=== PATIENT | female | born 1970 | race Caucasian/White ===

== ENCOUNTER 2017-10-30 02:17 | Emergency (ER) | payer MEDICAID ==
[2017-10-30 02:29] VITALS: BP 112/67
== END 2017-10-30 05:35 | disposition left against medical advice (07) ==
LOC: ER 02:17
DX: Z53.21 Procedure and treatment not carried out due to patient leaving prior to being seen by health care provider (principal)

== ENCOUNTER 2018-08-08 04:18 | Emergency (ER) | payer MEDICAID ==
[2018-08-08] MEDS ORDERED: CEPHALEXIN 500 MG CAPSULE PO ONE (11:54)
--- NOTE | 2018-08-08 11:57 | RADIOLOGY REPORT (SQ) ---
EXAM DESCRIPTION: VENOUS BILATERAL LOWER COMPLETED DATE/TIME: 08/08/2018 11:45 am REASON FOR STUDY: edema, r/o dvt COMPARISON: None. TECHNIQUE: Dynamic and static patton scale and color images acquired of both lower extremity venous sy stems. Selected spectral images acquired with additional compression and augmentation maneuvers. Imag es stored on PACS. LIMITATIONS: None. FINDINGS: RIGHT LEG COMMON FEMORAL AND FEMORAL: Normal phasicity, compression and augmentation. No visualized echogenic m aterial on patton scale. No defects on color images. POPLITEAL: Normal compression and augmentation. No visualized echogenic material on patton scale. No de fects on color images. CALF VESSELS: Normal compression and augmentation. No visualized echogenic material on patton scale. No defects on color image. GSV AND SSV: Normal compression. No visualized echogenic material on patton scale. No defects on color images. ANY DEEP VENOUS INSUFFICIENCY: No. ANY EVIDENCE OF POPLITEAL CYST: No. OTHER: No other significant finding. LEFT LEG COMMON FEMORAL AND FEMORAL: Normal phasicity, compression and augmentation. No visualized echogenic m aterial on patton scale. No defects on color images. POPLITEAL: Normal compression and augmentation. No visualized echogenic material on patton scale. No de fects on color images. CALF VESSELS: Normal compression and augmentation. No visualized echogenic material on patton scale. No defects on color images. GSV AND SSV: Normal compression. No visualized echogenic material on patton scale. No defects on color images. ANY DEEP VENOUS INSUFFICIENCY: No. ANY EVIDENCE POPLITEAL CYST: No. OTHER: No other significant finding. IMPRESSION: NO EVIDENCE DVT OR SVT IN EITHER LEG. TECHNICAL DOCUMENTATION: JOB ID: [id number] [employer]- All Rights Reserved Reading location - IP/workstation name: [email or web address]
--- NOTE | 2018-08-08 13:05 | ER Document Report ---
ED General - General Chief Complaint: Leg Swelling Stated Complaint: LEG PAIN Time Seen by Provider: 08/08/18 06:13 TRAVEL OUTSIDE OF THE [place] IN LAST 30 DAYS: No - HPI Notes: Patient is a 48-year-old female who presents to the emergency department for evaluation of left lower leg swelling and pain. She states is been going on for last month. She states this getting progressively worse. She denies any associated chest pain or shortness of breath. No nausea or vomiting. She states she has not had any prolonged immobility, no history of blood clots, no family history of blood clots. She has not had any recent surgeries. She does admit to picking at chronic wounds throughout her entire skin. - Related Data Allergies/Adverse Reactions: amoxicillin [Amoxicillin] Allergy (Verified 09/02/15 21:24) codeine Allergy (Verified 09/02/15 21:24) erythromycin base [Erythromycin Base] Allergy (Verified 09/02/15 21:24) iodine Allergy (Verified 09/02/15 21:24) Sulfa (Sulfonamide Antibiotics) Allergy (Verified 09/02/15 21:24) tetracycline [Tetracycline] Allergy (Verified 09/02/15 21:24) Past Medical History - General Information source: Patient - Social History Smoking Status: Current Some Day Smoker Chew tobacco use (# tins/day): No Frequency of alcohol use: Occasional Drug Abuse: Marijuana Family History: None Patient has suicidal ideation: No Patient has homicidal ideation: No Pulmonary Medical History: Reports: Hx Bronchitis Renal/ Medical History: Denies: Hx Peritoneal Dialysis Musculoskeletal Medical History: Reports Hx Arthritis Psychiatric Medical History: Reports: Hx Depression Past Surgical History: Reports: Hx Appendectomy, Hx Section, Hx Orthopedic Surgery - neck surgery - Immunizations Immunizations up to date: Yes Hx Diphtheria, Pertussis, Tetanus Vaccination: Yes Review of Systems - Review of Systems Constitutional: No symptoms reported EENT: No symptoms reported Respiratory: No symptoms reported Gastrointestinal: No symptoms reported Genitourinary: No symptoms reported Female Genitourinary: No symptoms reported Musculoskeletal: See HPI Skin: See HPI Neurological/Psychological: No symptoms reported Physical Exam - Vital signs Vitals: Temp Pulse Resp BP Pulse Ox 97.5 F 81 20 124/62 99 08/08/18 04:19 08/08/18 04:19 08/08/18 04:19 08/08/18 04:19 08/08/18 04:19 - Notes Notes: Vital signs reviewed, please refer to chart. Head is normocephalic, atraumatic. Pupils equal round, reactive to light. Neck is supple without meningismus. Heart is regular rate and rhythm. Lungs are clear to auscultation bilaterally. Abdomen is soft, nontender, normoactive bowel sounds throughout. Extremities without cyanosis, clubbing. Patient has 3+ pitting edema bilateral lower extremities. No posterior calf tenderness. Peripheral pulses are equal. Skin is warm and dry. He does have some mild associated calor and erythema to the left lower extremity. Not well demarcated, consistent with a possible cellulitis. Patient is awake, alert, neurological exam is nonfocal. Course - Re-evaluation Re-evalutation: 08/08/18 13:09 Patient presents emergency department for evaluation of lower extremity edema. She really did not notice that her right leg was just as swollen as her left. Bilateral Dopplers were found to be negative. We will go ahead and treat her for a cyst infected cellulitis given the multiple wounds that she has. She also has some diffuse erythema. She has no fevers or chills. No nausea or vomiting. She tolerated her first dose of Keflex here. I will send her home with prescription for same. She is to follow-up with primary care this week, return to the ED with worsening or new concerning symptoms of any sort. - Vital Signs Vital signs: Temp Pulse Resp BP Pulse Ox 98.0 F 81 16 118/54 L 96 08/08/18 08:17 08/08/18 08:17 08/08/18 08:17 08/08/18 08:17 08/08/18 08:17 Discharge - Discharge Clinical Impression: Lower extremity edema, Cellulitis of left leg without foot Condition: Stable Disposition: HOME, SELF-CARE Instructions: Dependent Edema ([facility]), Cellulitis ([facility]) Additional Instructions: Elevate legs, increase water intake. Take medication as prescribed. Return to the emergency department with worsening or new concerning symptoms.
[2018-08-08 13:09] VITALS: BP 130/78
== END 2018-08-08 13:33 | disposition home or self-care (01) ==
LOC: ER 04:18
DX: L03.116 Cellulitis of left lower limb (principal); R60.0 Localized edema; M79.662 Pain in left lower leg; F17.200 Nicotine dependence, unspecified, uncomplicated; F12.10 Cannabis abuse, uncomplicated; Z88.0 Allergy status to penicillin; Z88.5 Allergy status to narcotic agent; Z88.1 Allergy status to other antibiotic agents; Z88.2 Allergy status to sulfonamides
CPT/HCPCS: 93970; 99283

== ENCOUNTER 2018-08-16 22:26 | Emergency (ER) | payer MEDICAID ==
[2018-08-16] MEDS ORDERED: PREDNISONE 20 MG TABLET PO ONE (23:35)
[2018-08-16] MEDS ORDERED: FLUCONAZOLE 100 MG TABLET PO ONE (23:35)
--- NOTE | 2018-08-16 23:38 | ER Document Report ---
HPI - HPI Time Seen by Provider: 08/16/18 23:14 Pain Level: Denies Notes: Patient is a 48-year-old female presenting to the emergency department with complaints of rash that has been ongoing for 2 years. Patient reports that she is been placed on multiple creams as well as recently placed on Keflex for her rash. Patient states that the rash causes her much distress. Patient states that she has been seen by 2 different dermatologists. Patient reports that the computer programmer have now refused to see her stating that there is nothing wrong with her. Patient does have dried up scabs as well as new abrasions scattered across upper and lower extremities as well as in her scalp. Patient is requesting steroids as well as yeast medication as she states that the last doctor she saw thought that she should use Monistat cream to the areas. - REPRODUCTIVE Reproductive: DENIES: : Past Medical History - General Information source: Patient - Social History Smoking Status: Current Every Day Smoker Chew tobacco use (# tins/day): No Frequency of alcohol use: None Drug Abuse: None Family History: None Patient has suicidal ideation: No Patient has homicidal ideation: No Pulmonary Medical History: Reports: Hx Bronchitis Renal/ Medical History: Denies: Hx Peritoneal Dialysis Musculoskeletal Medical History: Reports Hx Arthritis Psychiatric Medical History: Reports: Hx Depression Past Surgical History: Reports: Hx Appendectomy, Hx Section, Hx Orthopedic Surgery - neck surgery - Immunizations Immunizations up to date: Yes Hx Diphtheria, Pertussis, Tetanus Vaccination: Yes Vertical Provider Document - CONSTITUTIONAL Notes: PHYSICAL EXAMINATION: GENERAL: Well-appearing, well-nourished and in no acute distress. HEAD: Atraumatic, normocephalic. EYES: Pupils equal round extraocular movements intact, conjunctiva are normal. ENT: Nares patent NECK: Normal range of motion LUNGS: No respiratory distress Musculoskeletal: Normal range of motion NEUROLOGICAL: Normal speech, normal gait. PSYCH: Normal mood, normal affect. SKIN: Warm, Dry, normal turgor, scattered rash noted with circular lesions of various stages of healing consistent with patient constantly scratching at the area. - INFECTION CONTROL TRAVEL OUTSIDE OF THE [place] IN LAST 30 DAYS: No Course - Re-evaluation Re-evalutation: Patient will be started on prednisone and Diflucan for her symptoms. I encouraged her to please follow-up with her primary care provider for consideration of referral to another computer programmer. - Vital Signs Vital signs: Temp Pulse Resp BP Pulse Ox 98.3 F 83 16 115/69 98 08/16/18 22:32 08/16/18 22:32 08/16/18 22:32 08/16/18 22:32 08/16/18 22:32 Discharge - Discharge Clinical Impression: fungal rash, puritis Condition: Stable Disposition: HOME, SELF-CARE Additional Instructions: Please take medications as prescribed. Please also take Benadryl 50 mg every 6 hours for the next 2 days. Follow-up with the [facility] as discussed. Try not to itch the areas. Continue taking the Keflex that was previously prescribed to you if you days ago. Prescriptions: Fluconazole [Diflucan] 150 mg PO ONCE PRN #1 tablet PRN Reason: RX: Prednisone [Deltasone] 60 mg PO DAILY #12 tablet
[2018-08-17 00:06] VITALS: BP 136/74
== END 2018-08-17 00:13 | disposition home or self-care (01) ==
LOC: ER 22:26
DX: B36.9 Superficial mycosis, unspecified (principal); F17.200 Nicotine dependence, unspecified, uncomplicated
CPT/HCPCS: 99282; J7512; J3490

== ENCOUNTER 2018-09-11 01:34 | Emergency (ER) | payer SELFPAY ==
[2018-09-11 01:59] VITALS: BP 107/81
--- NOTE | 2018-09-11 02:13 | ER Document Report ---
HPI - HPI Time Seen by Provider: 09/11/18 02:02 Context: Patient is a 48-year-old female who presents emergency department with a chief complaint of a rash that is all over her body. She has had it for the past 2 years. She continues to scratch at them. She was placed on Keflex about a hunter h and a half ago and she was also seen here in the emergency department and was placed on Diflucan to cover any fungal infection. Denies any fever. She just states it is itching all the time and she takes Benadryl [id number]. - ROS Notes: REVIEW OF SYSTEMS: CONSTITUTIONAL : Denies recent illness. Denies recent unintentional weight loss. Denies fever, chills, or sweats. EENT: Denies eye, ear, throat, or mouth pain, discharge, or symptoms. Denies nasal or sinus congestion. CARDIOVASCULAR: Denies chest pain. RESPIRATORY: Denies shortness of breath, cough, congestion, difficulty breathing, or wheezing. GASTROINTESTINAL: Denies nausea, vomiting, and diarrhea. Denies abdominal pain. Denies constipation. GENITOURINARY: Denies difficulty urinating, burning, blood in urine, urgency or frequency. MUSCULOSKELETAL: Denies neck and back pain. Denies joint pain or swelling. SKIN: See HPI HEMATOLOGIC : Denies easy bruising or bleeding. LYMPHATIC: Denies swollen, painful, enlarged glands. NEUROLOGICAL: Denies no numbness or tingling denies weakness. Denies headache. Denies altered mental status. Denies alteration in speech. PSYCHIATRIC: Denies stress, anxiety, alteration in sleep patterns, or depression. All other systems reviewed and negative. - REPRODUCTIVE Reproductive: DENIES: : Past Medical History - General Information source: Patient - Social History Smoking Status: Current Every Day Smoker Family History: None Pulmonary Medical History: Reports: Hx Bronchitis Renal/ Medical History: Denies: Hx Peritoneal Dialysis Musculoskeletal Medical History: Reports Hx Arthritis Psychiatric Medical History: Reports: Hx Depression Past Surgical History: Reports: Hx Appendectomy, Hx Section, Hx Orthopedic Surgery - neck surgery - Immunizations Immunizations up to date: Yes Hx Diphtheria, Pertussis, Tetanus Vaccination: Yes Vertical Provider Document - CONSTITUTIONAL Notes: PHYSICAL EXAMINATION: GENERAL: Appears well, healthy, well-nourished, no acute distress. HEAD: Normocephalic, atraumatic. EYES: PERRL, conjunctiva normal, all extraocular movements intact, sclera nonicteric ENT: Moist mucous membranes. NECK: Supple, no noticeable swelling, redness, rash. Normal range of motion. LUNGS: Equal breath sounds bilaterally and clear to auscultation. No wheezes rales or rhonchi. CARDIOVASCULAR: S1-S2, regular rate, regular rhythm. Radial pulses 2+, normal. ABDOMEN: Normoactive bowel sounds. Soft, nontender, no guarding, no rebound tenderness, and no masses palpated. EXTREMITIES: Normal strength and range of motion, no pitting or edema. No cyanosis. NEUROLOGICAL: Moves all extremities upon command. Strength 5/5 in all extremities. PSYCH: Normal mood, normal affect. SKIN: Warm, dry. Lesions noted all over body, consistent with the patient's scratching. Lesions are at various stages of healing. - INFECTION CONTROL TRAVEL OUTSIDE OF THE [place] IN LAST 30 DAYS: No Course - Re-evaluation Re-evalutation: 09/11/18 02:13 I am suspecting the patient is having continued bacterial skin infection because she continues to pick at her skin. She will be placed on Keflex again follow-up with her primary care provider. Ice suggested she also see dermatology, but she states she will not see them anymore because the visits are too expensive. I then suggested she follow-up with her primary care provider. She is in agreement with this plan. Follow-up precautions were given. Verbal discharge instructions were given to the patient. They verbalized understanding. They are stable for discharge. - Vital Signs Vital signs: Temp Pulse Resp BP Pulse Ox 98.2 F 91 20 107/81 97 09/11/18 01:57 09/11/18 01:57 09/11/18 01:57 09/11/18 01:57 09/11/18 01:57 Discharge - Discharge Clinical Impression: Rash Condition: Stable Disposition: HOME, SELF-CARE Additional Instructions: You were seen today in the emergency department for rash. You are being started on the antibiotic. Please make sure you finish all your antibiotics. Please stop picking at your skin, because this can make it worse. Please follow-up with your primary care provider or one of the clinics below in regards to this visit. Prescriptions: Cephalexin Monohydrate [Keflex 500 mg Capsule] 500 mg PO Q6H 7 Days #28 capsule
== END 2018-09-11 02:25 | disposition home or self-care (01) ==
LOC: ER 01:34
DX: R21 Rash and other nonspecific skin eruption (principal); F17.200 Nicotine dependence, unspecified, uncomplicated
CPT/HCPCS: 99282

== ENCOUNTER 2018-10-15 03:58 | Emergency (ER) | payer SELFPAY ==
[2018-10-15 04:08] VITALS: BP 122/79
[2018-10-15] MEDS ORDERED: LIDOCAINE 2% INJ (20 MG/ML) 20 ML MDV INJ ONE (04:17)
[2018-10-15] MEDS ORDERED: BUPIVACAINE HCL 0.5 % INJ/PF 30 ML SDV INJ ONE (04:18)
--- NOTE | 2018-10-15 04:25 | ER Document Report ---
ED General - General Chief Complaint: Hand Pain Stated Complaint: FINGER PAIN Time Seen by Provider: 10/15/18 04:13 Notes: Patient is a 48-year-old female presents with complaint of swelling and pain to the pad of the right middle finger. Patient says she has been actually trying to cut herself and try to get the pus out. She has several superficial abrasions on the finger for which she is been coming with her pocketknife. She denies any fevers. She does have a skin condition where she has dry skin and she picks at her skin frequently. She is been seen at the ER several times for skin picking in the past. TRAVEL OUTSIDE OF THE [place] IN LAST 30 DAYS: No - Related Data Allergies/Adverse Reactions: amoxicillin [Amoxicillin] Allergy (Verified 09/02/15 21:24) codeine Allergy (Verified 09/02/15 21:24) erythromycin base [Erythromycin Base] Allergy (Verified 09/02/15 21:24) iodine Allergy (Verified 09/02/15 21:24) Sulfa (Sulfonamide Antibiotics) Allergy (Verified 09/02/15 21:24) tetracycline [Tetracycline] Allergy (Verified 09/02/15 21:24) Past Medical History - Social History Smoking Status: Unknown if Ever Smoked Frequency of alcohol use: None Drug Abuse: None Family History: None Pulmonary Medical History: Reports: Hx Bronchitis Renal/ Medical History: Denies: Hx Peritoneal Dialysis Musculoskeletal Medical History: Reports Hx Arthritis Psychiatric Medical History: Reports: Hx Depression Past Surgical History: Reports: Hx Appendectomy, Hx Section, Hx Orthopedic Surgery - neck surgery - Immunizations Immunizations up to date: Yes Hx Diphtheria, Pertussis, Tetanus Vaccination: Yes Review of Systems - Review of Systems Notes: My Normal Review Basic REVIEW OF SYSTEMS: CONSTITUTIONAL : Denies fever, chills, or sweats. Denies recent illness. MUSCULOSKELETAL: Pain and swelling to the pad of the right third digit. SKIN: Denies rash or skin lesions. NEUROLOGICAL: Denies sensory or motor loss. ALL OTHER SYSTEMS REVIEWED AND NEGATIVE. Physical Exam - Vital signs Vitals: Temp Pulse BP Pulse Ox 97.6 F 87 122/79 100 10/15/18 04:07 10/15/18 04:07 10/15/18 04:07 10/15/18 04:07 - Notes Notes: General Appearance: Well nourished, alert, cooperative, no acute distress, moderate obvious discomfort. Vitals: reviewed, See vital signs table. Eyes: PERRL, EOMI, Conjuctiva clear Extremities: strength 5/5 in all extremities, good pulses in all extremities, patient has an obvious felon with swelling and tenderness to the pad of the right middle finger. Skin: warm, dry, appropriate color, no rash Neuro: speech clear, oriented x 3, normal affect, responds appropriately to questions. Course - Vital Signs Vital signs: Temp Pulse Resp BP Pulse Ox 97.6 F 87 122/79 100 10/15/18 04:07 10/15/18 04:07 10/15/18 04:07 10/15/18 04:07 Procedures - Incision and Drainage felon right 3rd digit mL's of anesthetic: 2 Blade size: 11 I&D procedure: Betadine prep applied Incision Method: Incision made by scalpel Amount/type of drainage: small amount of purulent drainage Notes: 10/15/18 05:28 Finger was anesthetized with a mixture of half lidocaine 2% and half bupivicaine 0.5%. Patient was given a total of 2 mL's of this mixture to the base of the right third digit. Discharge - Discharge Clinical Impression: Felon of finger Condition: Good Disposition: HOME, SELF-CARE Additional Instructions: Felon (Fingertip Abscess) You have a pus-forming infection of your fingertip. This is called a felon. A felon can cause permanent damage to the finger pad if untreated. If the infection has formed a pocket of pus, it will require incision and drainage (lancing). Sometimes a packing or wick is placed into the abscess cavity for a few days. Antibiotics are usually prescribed. Elevation and application of heat can be helpful. The wound will heal with surprisingly little scar. This will take a two or three weeks. If you develop fever, chilling, worsening pain, or increasing swelling in the area, call the doctor or return immediately. We have prescribed an antibiotic called clindamycin. Please stop taking this antibiotic if you develop diarrhea. Follow-up with your doctor or the ER on Thursday for reevaluation to make sure your finger is healing appropriately. Prescriptions: Clindamycin HCl [Cleocin 150 mg Capsule] 300 mg PO Q6 #56 capsule Forms: Return to Work
[2018-10-15] MEDS ORDERED: ONDANSETRON 4 MG TAB.RAPDIS ONE (05:11)
[2018-10-15] MEDS ORDERED: ONDANSETRON 4 MG TAB.RAPDIS PO ONE (05:15)
[2018-10-15] MEDS ORDERED: CLINDAMYCIN HCL 150 MG CAPSULE PO ONE (05:36)
== END 2018-10-15 05:50 | disposition home or self-care (01) ==
LOC: ER 03:58
PROC: 0H9QXZZ Drainage of Finger Nail, External Approach (ICD-10-PCS; principal; 2018-10-15)
DX: L03.011 Cellulitis of right finger (principal); S60.412A Abrasion of right middle finger, initial encounter; M79.644 Pain in right finger(s); M79.89 Other specified soft tissue disorders; X58.XXXA Exposure to other specified factors, initial encounter
CPT/HCPCS: 99283; 10060; J3490 ×2; S0119

== ENCOUNTER 2018-10-16 20:48 | Emergency (ER) | payer SELFPAY ==
[2018-10-16] MEDS ORDERED: OXYCODONE-ACETAMINOPHEN 5-325 MG TABLET PO ONE (21:49)
--- NOTE | 2018-10-16 22:24 | ER Document Report ---
ED Wound - General Chief Complaint: Wound Infection Stated Complaint: HAND INFECTION Time Seen by Provider: 10/16/18 21:18 Mode of Arrival: Ambulatory Information source: Patient Notes: Patient is a 48-year-old female presented to the emergency department with chief complaint of concern for right fourth digit infection. Patient reports pain and swelling started 5 days ago. She reports she was seen in this emergency department 2 days ago at which time an incision and drainage was performed. Patient reports she was placed on cephalexin but she did not take it as she thinks she is allergic to it. Patient does report she had leftover cephalexin that she has taken 2 doses out of. Patient denies any fever or chills, states that the pain and swelling is better than it was 2 days ago but has not improved. She reports when the incision and drainage was performed they did not get much out. TRAVEL OUTSIDE OF THE [place] IN LAST 30 DAYS: No - Related Data Allergies/Adverse Reactions: amoxicillin [Amoxicillin] Allergy (Verified 09/02/15 21:24) codeine Allergy (Verified 09/02/15 21:24) erythromycin base [Erythromycin Base] Allergy (Verified 09/02/15 21:24) iodine Allergy (Verified 09/02/15 21:24) Sulfa (Sulfonamide Antibiotics) Allergy (Verified 09/02/15 21:24) tetracycline [Tetracycline] Allergy (Verified 09/02/15 21:24) Past Medical History - General Information source: Patient - Social History Smoking Status: Current Every Day Smoker Chew tobacco use (# tins/day): No Frequency of alcohol use: None Drug Abuse: None Family History: None Patient has suicidal ideation: No Patient has homicidal ideation: No Pulmonary Medical History: Reports: Hx Bronchitis Renal/ Medical History: Denies: Hx Peritoneal Dialysis Musculoskeletal Medical History: Reports Hx Arthritis Psychiatric Medical History: Reports: Hx Depression Past Surgical History: Reports: Hx Appendectomy, Hx Section, Hx Orthopedic Surgery - neck surgery - Immunizations Immunizations up to date: Yes Hx Diphtheria, Pertussis, Tetanus Vaccination: Yes Review of Systems - Review of Systems Constitutional: No symptoms reported EENT: No symptoms reported Cardiovascular: No symptoms reported Respiratory: No symptoms reported Gastrointestinal: No symptoms reported Genitourinary: No symptoms reported Female Genitourinary: No symptoms reported Musculoskeletal: See HPI Skin: See HPI Hematologic/Lymphatic: No symptoms reported Neurological/Psychological: No symptoms reported Physical Exam - Vital signs Vitals: Temp Pulse Resp BP Pulse Ox 97.7 F 106 H 19 130/63 H 98 10/16/18 20:52 10/16/18 20:52 10/16/18 20:52 10/16/18 20:52 10/16/18 20:52 - Notes Notes: PHYSICAL EXAMINATION: GENERAL: Well-appearing, well-nourished and in no acute distress. HEAD: Atraumatic, normocephalic. EYES: Pupils equal round extraocular movements intact, conjunctiva are normal. ENT: Nares patent NECK: Normal range of motion LUNGS: No respiratory distress Musculoskeletal: Normal range of motion, full flexion and extension of right fourth digit, see below. NEUROLOGICAL: Normal speech, normal gait. PSYCH: Normal mood, normal affect. SKIN: Induration noted to tip of right fourth digit on the plantar surface, cap refill less than 3 seconds, normal motor and sensation although limited somewhat due to pain. Course - Re-evaluation Re-evalutation: X-ray was performed and shows no evidence of osteomyelitis. I did recommend to the patient that we do a digital block to perform another incision and drainage, patient adamantly declines this. I did ask patient if she had been soaking the finger, patient reports she soaked the finger one time, states that she did not know that would help. Patient requesting prescription for antibiotics that she is not allergic to and she would like to give it 24 hours to try warm salt soaks. At this time there is induration but no area of fluctuance. - Vital Signs Vital signs: Temp Pulse Resp BP Pulse Ox 97.8 F 87 18 111/64 99 10/17/18 00:10 10/17/18 00:10 10/17/18 00:10 10/17/18 00:10 10/17/18 00:10 Discharge - Discharge Clinical Impression: Felon of finger Cellulitis Qualifiers: Site of cellulitis: other site Qualified Code(s): L03.818 - Cellulitis of other sites Condition: Stable Disposition: HOME, SELF-CARE Additional Instructions: Felon (Fingertip Abscess) You have a pus-forming infection of your fingertip. This is called a felon. A felon can cause permanent damage to the finger pad if untreated. If the infection has formed a pocket of pus, it will require incision and drainage (lancing). Sometimes a packing or wick is placed into the abscess cavity for a few days. Antibiotics are usually prescribed. Elevation and application of heat can be helpful. The wound will heal with surprisingly little scar. This will take a two or three weeks. If you develop fever, chilling, worsening pain, or increasing s welling in the area, call the doctor or return immediately. You have declined another incision and drainage today. Please take antibiotics exactly as prescribed. You have been prescribed this antibiotic as you stated that you are allergic to clindamycin that was previously given to you. Please do not pick at the area, use warm salt soaks 4 times daily with clean water. Watch the area very closely and if not improving significantly please return within 24 hours. Return sooner if worsening or if you develop a fever. Prescriptions: Cephalexin [Cephalexin 500 MG Tablet] 1 tab PO QID #40 tablet
--- NOTE | 2018-10-16 22:33 | RADIOLOGY REPORT (SQ) ---
EXAM DESCRIPTION: XR FINGERS COMPLETED DATE/TME: 10/16/2018 21:49 CLINICAL HISTORY: 48 years, Female, 4th digit pain/swelling COMPARISON: None. NUMBER OF VIEWS: 3 TECHNIQUE: 3 views of the right fourth digit LIMITATIONS: None. FINDINGS: Old healed fifth metacarpal fracture. Soft tissue swelling along the distal aspect of the fourth digit. No soft tissue gas. No acute osseous abnormality. IMPRESSION: Soft tissue swelling of the distal fourth digit. No acute osseous abnormality copyright 2010 [employer]- All Rights Reserved
[2018-10-16] MEDS ORDERED: LIDOCAINE 1% INJ-PF (10 MG/ML) 30 ML SDV NEB ONE (23:47)
[2018-10-16] MEDS ORDERED: CEFTRIAXONE INJ 1000 MG VIAL IM ONE (23:47)
[2018-10-16] MEDS ORDERED: LIDOCAINE 1% INJ-PF (10 MG/ML) 30 ML SDV IM ONE (23:50)
[2018-10-17] MEDS ORDERED: HYDROCODONE/ACETAMINOPHEN 5-325 MG (6 TAB/ER DISP) PO PRN (00:10)
[2018-10-17 00:13] VITALS: BP 111/64
== END 2018-10-17 00:25 | disposition home or self-care (01) ==
LOC: ER 20:48
DX: L03.011 Cellulitis of right finger (principal); T36.1X6A Underdosing of cephalosporins and other beta-lactam antibiotics, initial encounter; Z91.128 Patient's intentional underdosing of medication regimen for other reason; Z91.14 Patient's other noncompliance with medication regimen; Z98.890 Other specified postprocedural states; Z88.0 Allergy status to penicillin; Z88.5 Allergy status to narcotic agent; Z88.1 Allergy status to other antibiotic agents; Z88.2 Allergy status to sulfonamides
CPT/HCPCS: 99283; 96372; 73140; J3490; J0696

== ENCOUNTER 2018-10-18 22:04 | Emergency (ER) | payer SELFPAY ==
[2018-10-18 22:20] VITALS: BP 127/69
--- NOTE | 2018-10-18 23:07 | ER Document Report ---
ED Medical Screen (RME) - General Chief Complaint: Wound Infection Stated Complaint: FINGER PAIN Time Seen by Provider: 10/18/18 22:59 Mode of Arrival: Ambulatory Information source: Patient Notes: 48-year-old female presented to ED for complaint of skin infection all over. She states she is got her skin infection back all over she is itching all over in this hospital is going to make her sick. She was seen in the ER October 15 and . Patient is alert oriented respirations regular and unlabored speaking in full sentences walking with a even steady gait. I have greeted and performed a rapid initial assessment of this patient. A comprehensive ED assessment and evaluation of the patient, analysis of test results and completion of medical decision making process will be conducted by an additional ED providers. Dictation of this chart was performed using voice recognition software; therefore, there may be some unintended grammatical errors. TRAVEL OUTSIDE OF THE [place] IN LAST 30 DAYS: No - Related Data Allergies/Adverse Reactions: amoxicillin [Amoxicillin] Allergy (Verified 09/02/15 21:24) codeine Allergy (Verified 09/02/15 21:24) erythromycin base [Erythromycin Base] Allergy (Verified 09/02/15 21:24) iodine Allergy (Verified 09/02/15 21:24) Sulfa (Sulfonamide Antibiotics) Allergy (Verified 09/02/15 21:24) tetracycline [Tetracycline] Allergy (Verified 09/02/15 21:24) Past Medical History Pulmonary Medical History: Reports: Hx Bronchitis Renal/ Medical History: Denies: Hx Peritoneal Dialysis Musculoskeltal Medical History: Reports Hx Arthritis Psychiatric Medical History: Reports: Hx Depression Past Surgical History: Reports: Hx Appendectomy, Hx Section, Hx Orthopedic Surgery - neck surgery - Immunizations Immunizations up to date: Yes Hx Diphtheria, Pertussis, Tetanus Vaccination: Yes Physical Exam - Vital signs Vitals: Temp Pulse Resp BP Pulse Ox 98.1 F 91 16 127/69 H 96 10/18/18 22:18 10/18/18 22:18 10/18/18 22:18 10/18/18 22:18 10/18/18 22:18 Course - Vital Signs Vital signs: Temp Pulse Resp BP Pulse Ox 98.1 F 91 16 127/69 H 96 10/18/18 22:18 10/18/18 22:18 10/18/18 22:18 10/18/18 22:18 10/18/18 22:18
== END 2018-10-19 02:55 | disposition left against medical advice (07) ==
LOC: ER 22:04
DX: L08.9 Local infection of the skin and subcutaneous tissue, unspecified (principal); Z88.0 Allergy status to penicillin; Z88.6 Allergy status to analgesic agent; Z88.3 Allergy status to other anti-infective agents; Z88.2 Allergy status to sulfonamides
CPT/HCPCS: 99281

== ENCOUNTER 2018-11-19 15:13 | Emergency (ER) | payer SELFPAY ==
[2018-11-19 15:22] VITALS: BP 124/63
--- NOTE | 2018-11-19 16:21 | ER Document Report ---
HPI - HPI Patient complains to provider of: skin rash Time Seen by Provider: 11/19/18 16:04 Onset/Duration: Persistent Pain Level: Denies Context: Patient presents complaining of pruritic skin rash for the past 2 days. Patient states she had a rash like this off and on for the past 2 years. Patient also reports a new roommate and is concerned that she may have been exposed to mites. Patient denies any new foods or medications. No new detergents. Associated Symptoms: denies: Fever, Headache Exacerbated by: Denies Relieved by: Denies Similar symptoms previously: Yes Recently seen / treated by doctor: No - ROS ROS below otherwise negative: Yes Systems Reviewed and Negative: Yes All other systems reviewed and negative - CONSTITUTIONAL Constitutional: DENIES: Fever - NEURO Neurology: DENIES: Headache - GASTROINTESTINAL Gastrointestinal: DENIES: Nausea - REPRODUCTIVE Reproductive: DENIES: : - DERM Skin Color: Normal Skin Problems: Rash Past Medical History - General Information source: Patient - Social History Smoking Status: Current Every Day Smoker Chew tobacco use (# tins/day): No Frequency of alcohol use: None Drug Abuse: Marijuana Occupation: None Lives with: Friend Family History: None Patient has suicidal ideation: No Patient has homicidal ideation: No - Medical History Medical History: Other - sjorgrens Pulmonary Medical History: Reports: Hx Bronchitis Renal/ Medical History: Denies: Hx Peritoneal Dialysis Musculoskeletal Medical History: Reports Hx Arthritis Skin Medical History: Reports Other Psychiatric Medical History: Reports: Hx Depression Past Surgical History: Reports: Hx Appendectomy, Hx Section - 3, Hx Orthopedic Surgery - neck surgery - Immunizations Immunizations up to date: Yes Hx Diphtheria, Pertussis, Tetanus Vaccination: Yes Vertical Provider Document - CONSTITUTIONAL Agree With Documented VS: Yes Exam Limitations: No Limitations General Appearance: WD/WN, No Apparent Distress - INFECTION CONTROL TRAVEL OUTSIDE OF THE [place] IN LAST 30 DAYS: No - HEENT HEENT: Atraumatic, Normocephalic - NECK Neck: Normal Inspection, Supple - RESPIRATORY Respiratory: Breath Sounds Normal, No Respiratory Distress - CARDIOVASCULAR Cardiovascular: Regular Rate, Regular Rhythm - BACK Back: Normal Inspection - MUSCULOSKELETAL/EXTREMETIES Musculoskeletal/Extremeties: MAEW - NEURO Level of Consciousness: Awake, Alert, Appropriate Motor/Sensory: No Motor Deficit - DERM Integumentary: Warm, Dry, Rash - Patient with diffuse erythematous rash with areas of excoriation and crusting. Some lesions with surrounding erythema. No concern for abscess at this time. Many of the lesions appear chronic in nature Course - Re-evaluation Re-evalutation: 11/19/18 16:19 Patient presents with rash distributed generally. Patient encouraged to stop picking as she is picking at her skin during the examination. Patient encouraged to follow-up with dermatology given the chronic nature of her skin lesions. Patient is concerned that she may have been exposed to mites with a new roommate. Patient is requesting treatment for that as well. - Vital Signs Vital signs: Temp Pulse Resp BP Pulse Ox 97.9 F 93 18 124/63 95 11/19/18 15:21 11/19/18 15:21 11/19/18 15:21 11/19/18 15:21 11/19/18 15:21 Discharge - Discharge Clinical Impression: Skin rash, Impetigo Condition: Stable Disposition: HOME, SELF-CARE Instructions: Anti-Mite Skin Creams, Cephalexin ([facility]), Impetigo ([facility]), Steroid Medication Additional Instructions: Return immediately for any new or worsening symptoms Followup with your primary care provider, call tomorrow to make a followup appointment Stop scratching at your skin Prescriptions: Hydroxyzine HCl [Atarax 25 mg Tablet] 1 - 2 tab PO QID PRN #25 tablet PRN Reason: Prednisone [Deltasone 10 mg Tablet] 10 mg PO ASDIR PRN #21 tablet PRN Reason: Permethrin [Elimite] 60 gm TP ONCE #60 gm Cephalexin Monohydrate [Keflex 500 mg Capsule] 500 mg PO Q6H 5 Days capsule Referrals: COLTON HARO DO [ACTIVE STAFF] - Follow up in 3-5 days [facility] [Provider Group] - Follow up tomorrow
== END 2018-11-19 16:35 | disposition home or self-care (01) ==
LOC: ER 15:13
DX: L01.00 Impetigo, unspecified (principal); F17.200 Nicotine dependence, unspecified, uncomplicated
CPT/HCPCS: 99282

== ENCOUNTER 2019-01-12 00:22 | Emergency (ER) | payer SELFPAY ==
[2019-01-12] MEDS ORDERED: IBUPROFEN 800 MG TABLET PO ONE (00:34)
[2019-01-12] MEDS ORDERED: TETRACAINE HCL 0.5% OPH SOLN 4 ML OU ONE (00:34)
[2019-01-12] MEDS ORDERED: LORAZEPAM 1 MG TABLET PO ONE (00:55)
[2019-01-12] MEDS ORDERED: POLYMYXIN B SULFATE/TMP OPH SOLN (10 ML/ER DISP) OS PRN (03:28)
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
[2019-01-12] MEDS ORDERED: BESIFLOXACIN HCL 0.6% OPH SUSP 5 ML BOTTLE OS ONE (03:53)
[2019-01-12] MEDS ORDERED: BESIFLOXACIN HCL 0.6% OPH SUSP 5 ML BOTTLE ONE (04:45)
[2019-01-12 07:12] VITALS: BP 118/74
== END 2019-01-12 07:18 | disposition home or self-care (01) ==
LOC: ER 00:22
DX: S05.02XA Injury of conjunctiva and corneal abrasion without foreign body, left eye, initial encounter (principal); X58.XXXA Exposure to other specified factors, initial encounter; Z77.098 Contact with and (suspected) exposure to other hazardous, chiefly nonmedicinal, chemicals; Z20.7 Contact with and (suspected) exposure to pediculosis, acariasis and other infestations; L53.9 Erythematous condition, unspecified; R22.0 Localized swelling, mass and lump, head; F17.200 Nicotine dependence, unspecified, uncomplicated; Z88.0 Allergy status to penicillin; Z88.5 Allergy status to narcotic agent; Z88.1 Allergy status to other antibiotic agents; Z91.040 Latex allergy status; Z88.2 Allergy status to sulfonamides
CPT/HCPCS: 99283; J3490

== ENCOUNTER 2019-01-17 22:27 | Emergency (ER) | payer SELFPAY ==
[2019-01-17 22:39] VITALS: BP 129/74
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
== END 2019-01-18 00:27 | disposition home or self-care (01) ==
LOC: ER 22:27
DX: F22 Delusional disorders (principal); R45.851 Suicidal ideations; L29.9 Pruritus, unspecified; F17.200 Nicotine dependence, unspecified, uncomplicated; F12.10 Cannabis abuse, uncomplicated; Z79.899 Other long term (current) drug therapy; Z88.0 Allergy status to penicillin; Z88.1 Allergy status to other antibiotic agents; Z88.5 Allergy status to narcotic agent; Z91.040 Latex allergy status; Z88.2 Allergy status to sulfonamides
CPT/HCPCS: 99284

== ENCOUNTER 2019-02-15 09:36 | Emergency (ER) | payer SELFPAY ==
--- NOTE | 2019-02-15 10:26 | ER Document Report ---
ED Psych Disorder / Suicide - General Chief Complaint: Psych Problem Stated Complaint: BEHAVIORAL,RASH Time Seen by Provider: 02/15/19 09:40 Primary Care Provider: [facility] [NO LOCAL MD] - Follow up as needed Notes: 49-year-old female was brought in for bizarre behavior. The patient states she feels as if she has bugs in her house. She states she cannot afford heaters to heat the house to kill the bedbugs. Patient stated this been going on for years. She also states she is having thoughts of suicide but has no specific plan. She also admits to hearing voices but cannot describe what they are saying to her. Denies visual hallucinations however she has never seen any bugs or abnormalities. The patient stated she is very itchy all the time. Please were called for a wellness check and the patient was found via EMS to be very paranoid. She has rash over her body with multiple excoriations. TRAVEL OUTSIDE OF THE [place] IN LAST 30 DAYS: No - Related Data Allergies/Adverse Reactions: amoxicillin [Amoxicillin] Allergy (Verified 11/19/18 15:17) codeine Allergy (Verified 11/19/18 15:17) erythromycin base [Erythromycin Base] Allergy (Verified 11/19/18 15:17) iodine Allergy (Verified 11/19/18 15:17) latex Allergy (Verified 11/19/18 15:17) Sulfa (Sulfonamide Antibiotics) Allergy (Verified 11/19/18 15:17) tetracycline [Tetracycline] Allergy (Verified 11/19/18 15:17) Home Medications: Vistiril Past Medical History - Social History Smoking Status: Current Every Day Smoker Chew tobacco use (# tins/day): No Frequency of alcohol use: None Drug Abuse: Marijuana Family History: None Patient has suicidal ideation: Yes Patient has homicidal ideation: No Pulmonary Medical History: Reports: Hx Bronchitis Renal/ Medical History: Denies: Hx Peritoneal Dialysis Musculoskeletal Medical History: Reports Hx Arthritis Psychiatric Medical History: Reports: Hx Depression Past Surgical History: Reports: Hx Appendectomy, Hx Section - 3, Hx Orthopedic Surgery - neck surgery - Immunizations Immunizations up to date: Yes Hx Diphtheria, Pertussis, Tetanus Vaccination: Yes Review of Systems - Review of Systems Constitutional: denies: Chills, Fever Skin: Rash Neurological/Psychological: Hallucinations, Suicidal ideation -: Yes All other systems reviewed and negative Physical Exam - Notes Notes: GENERAL_APPEARANCE: well_nourished, alert, cooperative VITALS: reviewed, see vital signs table. HEAD: no_swelling\tenderness on the head. EYES: PERRL, EOMI, conjunctiva_clear. NOSE: no_nasal_discharge. MOUTH: (-)decreased moisture. THROAT: no_tonsilar_inflammation, no_airway_obstruction. no_lymphadenopathy NECK: supple, no_neck_tenderness, (-)thyromegaly. BACK: no_back_tenderness. CHEST_WALL: no_chest_tenderness. LUNGS: no_wheezing, no_rales, no_rhonchi, (-)accessory muscle use, good air exchange bilateral. HEART: normal_rate, normal_rhythm, normal_S1, normal_S2, (-)S3, (-)S4, no_murmur, no_rub. ABDOMEN: normal_BS, soft, no_abd_tenderness, (-)guarding, (-)rebound, no_organomegaly, no_abd_masses. EXTREMITIES:good pulses in all_extremities, no_swelling\tenderness in the extremities, no_edema. SKIN: warm, dry, good_color, multiple rash and excoriations, excoriations all over the arms legs neck and face. MENTAL_STATUS: speech_rapid and pressured, oriented_X_3, [place] and paranoid_affect, responds_appropriately to questions. NEURO: Neg Motor or Sensory Deficits on exam, CN 2-12 intact, DTR 2+ symmetric x 4, No cerbellar signs PSYCH: Patient is very animated anxious. She states she is having thoughts of hurting herself but really has no specific plan states she is had these for a while states she also has heard voices. But cannot make out what they are saying denies visual hallucinations. Denies homicidal ideation patient states she feels as if she has bedbugs in her how she is try to get the heaters to heat her house up so that she could kill the bedbugs. She is been seen on several occasions for these. States she is very itchy. Patient is acting very bizarrely almost manic. Course - Re-evaluation Re-evalutation: 02/15/19 10:24 Patient arrives with a diffuse rash and excoriations I cannot tell if this was originally insect bites or not pretty much she has excoriated everywhere she can reach. There is nothing that looks infected. Patient is convinced she has bedbugs in her house. However she cannot afford the heaters to heat the house up to kill the bedbugs. Patient also states she is having thoughts of hurting herself. She has no specific plan. Patient is also hearing voices but cannot make out what they are saying. Patient states she smokes marijuana but does not do any kind of methamphetamine or otherwise. We will do a full work-up on her for drug screen. Patient will require medication does remain calm here. Consult psychiatry once clear 02/15/19 14:35 Drug screen was positive for opiates and marijuana. Do not believe the patient is having any kind of allergic reaction. All the rashes look older there are excoriations. This is not hives or urticaria. Patient was given some Benadryl for her comfort. She was given some medications to settle her down she will need to be evaluated by psychiatry. She is medically stable for any kind of inpatient or outpatient psychiatric care she would require - Laboratory Result Diagrams: 02/15/19 10:45 02/15/19 10:45 Laboratory results interpreted by me: 02/15/19 02/15/19 02/15/19 10:30 10:45 10:45 Hgb 10.6 L Hct 33.8 L MCV 68 L MCH 21.2 L MCHC 31.4 L RDW 19.1 H Ur Leukocyte Esterase SMALL H Salicylates < 1.0 L Acetaminophen < 10 L Discharge - Discharge Clinical Impression: Acute psychosis Condition: Good Disposition: OTHER [facility] [NO [facility] MD] - Follow up as needed
[2019-02-15] MEDS ORDERED: CHLORPROMAZINE HCL 50 MG TABLET PO ONE (10:48)
[2019-02-15] MEDS ORDERED: BENZTROPINE MESYLATE 1 MG TABLET PO ONE (10:48)
[2019-02-15] MEDS ORDERED: CHLORPROMAZINE HCL 50 MG TABLET PO PRN (10:49)
[2019-02-15 10:55] LABS: APPEARANCE,URINE SLIGHTLY-CLOUDY; BILIRUBIN,URINE NEGATIVE (NEGATIVE); COLOR,URINE YELLOW; GLUCOSE, URINE NEGATIVE (NEGATIVE); KETONES,URINE NEGATIVE (NEGATIVE); LEUKOCYTE ESTERASE,URINE SMALL (NEGATIVE); NITRITE,URINE NEGATIVE (NEGATIVE); PROTEIN,URINE NEGATIVE (NEGATIVE); URINE SPECIFIC GRAVITY 1.011; UROBILINOGEN,URINE NEGATIVE mg/dL (<2.0)
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
[2019-02-15 11:05] LABS: ABSOLUTE BASOPHILS # (AUTO) 0.1 10^3/uL (0.0-0.2); ABSOLUTE EOSINOPHILS # (AUTO) 0.5 10^3/uL (0.0-0.6); ABSOLUTE LYMPHOCYTES (AUTO) 3.4 10^3/uL (0.5-4.7); ABSOLUTE MONOCYTES (AUTO) 0.9 10^3/uL (0.1-1.4); ABSOLUTE NEUT (AUTO) 4.1 10^3/uL (1.7-8.2); BASOPHILS % (AUTO) 0.7 % (0-2); EOSINOPHILS % (AUTO) 5.3 % (0-6); HEMATOCRIT 33.8 % (36.0-47.0); HEMOGLOBIN 10.6 g/dL (12.0-15.5); LYMPHOCYTES % (AUTO) 37.9 % (13-45); MEAN CORPUSCULAR HEMOGLOBIN 21.2 pg (27.0-33.4); MEAN CORPUSCULAR HGB CONC 31.4 g/dL (32.0-36.0); MEAN CORPUSCULAR VOLUME 68 fl (80-97); MONOCYTES % (AUTO) 9.7 % (3-13); PLATELET COUNT 416 10^3/uL (150-450); RED CELL DISTRIBUTION WIDTH 19.1 % (11.5-14.0); SEGMENTED NEUTROPHILS % (AUTO) 46.4 % (42-78); TOTAL CELLS COUNTED % (AUTO) 100 %; WHITE BLOOD COUNT 8.9 10^3/uL (4.0-10.5)
[2019-02-15 11:08] LABS: URINE AMPHETAMINES SCREEN NEGATIVE; URINE BARBITURATES SCREEN NEGATIVE; URINE BENZODIAZEPINES SCREEN NEGATIVE; URINE COCAINE SCREEN NEGATIVE; URINE METHADONE SCREEN NEGATIVE; URINE PHENCYCLIDINE SCREEN NEGATIVE
[2019-02-15 11:18] LABS: URINE MARIJUANA (THC) SCREEN UNCONFIRMED POSITIVE
[2019-02-15 11:27] LABS: ALBUMIN 3.8 g/dL (3.5-5.0); ALKALINE PHOSPHATASE 116 U/L (38-126); ANION GAP 6 (5-19); ASPARTATE AMINO TRANSFERASE 25 U/L (14-36); BILIRUBIN,TOTAL 0.3 mg/dL (0.2-1.3); BLOOD UREA NITROGEN 10 mg/dL (7-20); CALCIUM 9.2 mg/dL (8.4-10.2); CARBON DIOXIDE 29 mmol/L (22-30); CHLORIDE 105 mmol/L (98-107); GLUCOSE 90 mg/dL (75-110); POTASSIUM 4.3 mmol/L (3.6-5.0); TOTAL PROTEIN 7.3 g/dL (6.3-8.2)
[2019-02-15 11:29] LABS: ACETAMINOPHEN < 10 ug/mL (10-30); ALCOHOL < 10 mg/dL (NONE DETECTED); SALICYLATE < 1.0 mg/dL (2.0-20.0)
[2019-02-15] MEDS ORDERED: DIPHENHYDRAMINE HCL 50 MG CAPSULE PO ONE (12:00)
--- NOTE | 2019-02-15 18:19 | EKG REPORT ---
SEVERITY:- BORDERLINE ECG - SINUS RHYTHM PROBABLE LEFT ATRIAL ABNORMALITY BORDERLINE PROLONGED QT INTERVAL : Confirmed by: Mahin Poole 15-Feb-2019 18:18:55
[2019-02-16] MEDS ORDERED: BENZTROPINE MESYLATE 1 MG TABLET PO SCH (10:00)
--- NOTE | 2019-02-16 10:42 | ER Document Report ---
Doctor's Note Notes: 02/16/19 10:42 Patient is a 49-year-old female who came to the ED yesterday for evaluation. She has been c/o bugs in her home for a while now, auditory hallucinations, and SI w/o any plan. She has been able to eat and drink without difficulty. She is urinating normally and having normal bowel movements. She has no other concerns or complaints at this time. Patient states that she is feeling well overall. She continues to have no plan for her SI or any HI. Denies any headache, fever, neck pain, URI, sore throat, chest pain, palpitations, syncope, cough, shortness of breath, wheeze, dyspnea, abdominal pain, nausea/vomiting/diarrhea, urinary retention, dysuria, hematuria, or rash. General: A&O. Answers questions appropriately. Heart: RRR Lungs: CTAB Psych: normal affect A/P: Continue monitoring and med rec's per MH. Waiting on further rec's from team. Normal diet
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
[2019-02-16 16:37] VITALS: BP 116/73
== END 2019-02-16 16:47 | disposition home or self-care (01) ==
LOC: ER 09:36
DX: F19.10 Other psychoactive substance abuse, uncomplicated (principal); F23 Brief psychotic disorder; F12.10 Cannabis abuse, uncomplicated; R21 Rash and other nonspecific skin eruption; Z88.6 Allergy status to analgesic agent; Z88.0 Allergy status to penicillin; Z91.040 Latex allergy status; Z88.2 Allergy status to sulfonamides; F17.200 Nicotine dependence, unspecified, uncomplicated
CPT/HCPCS: 93005; 99285; 36415; 80307 ×4; 84703; 85025; 80053; 81001; 93010; J3490